=== PATIENT | male | born 1955 | race Caucasian/White ===

== ENCOUNTER 2018-04-28 11:34 | Emergency (ER) | payer BC ==
[~2018-04-28] VITALS: Ht 172.7 cm; Wt 111.4 kg
[~2018-04-28 11:34] MED LIST: ALTACE 5MG5 MG PO; ASPIRIN 32325 MG/TAB PO; BETAPACE 120MG120 MG PO; CARDURA4 MG PO; CLEOCIN HCL300 MG PO; DEPO-TESTOS200 MG/M1 IM; HCTZ 25MG TAB25 MG PO; KLONOPIN 1MG1 MG PO; LOPID 600M600 MG/TAB PO; LOZOL1.25 MG PO; NORCO 325 MG-51 TAB PO; PLAVIX 75MG TAB75 MG PO; PRILOSEC 20MG20 MG PO; TENORMIN 5050 MG/TAB PO
[2018-04-28 11:40] VITALS: TEMP 96.2
[2018-04-28 12:06] LABS: BASO % 0.5 % (0.0-2.0); EOS # 0.3 (0.0-0.7); EOS % 5.6 % (0-4.0); GRAN # 3.3 (1.4-6.5); GRAN % 54.2 % (42.2-75.2); HEMOGLOBIN 17.4 g/dl (13.5-18.0); LYMPH # 1.8 (1.2-3.4); LYMPH % 29.3 % (20.0-51.0); MEAN CELL VOLUME 86 fl (80.0-100.0); MEAN CORPUSCULAR HEMOGLOBIN 30 pg (27.0-31.0); MEAN CORPUSCULAR HGB CONC 34 g/dl (33.0-37.0); MEAN PLATELET VOLUME 10.6 fl (7.4-10.4); MONO # 0.6 (0.1-0.6); MONO % 9.7 % (1.7-9.3); PLATELET COUNT 191 K/mm3 (130-400); REDCELL DISTRIBUTION WIDTH-CV 15.2 % (11.5-14.5)
[2018-04-28 12:12] LABS: INR 1.2 (0.8-3.0); PROTHROMBIN TIME 13.5 SECONDS (9.7-12.8)
[2018-04-28 12:52] LABS: ALBUMIN 3.7 gm/dL (3.5-5.0); BILIRUBIN,TOTAL 0.7 mg/dL (0.0-1.0); CALCIUM 8.8 mg/dL (8.4-10.2); CREATININE, serum 0.91 mg/dL (0.66-1.25); POTASSIUM 4.7 mmol/L (3.4-5.0); TOTAL PROTEIN 7.3 gm/dL (6.4-8.2)
[2018-04-28] MEDS ORDERED: FLEXERIL 1010 MG/TAB PO (13:40)
[2018-04-28 13:50] VITALS: BP 128/86; PULSE 86
== END 2018-04-28 14:00 | disposition home or self-care (01) ==
LOC: COL.ER 11:34
PROVIDERS: Emergency Medicine
DX: S06.0X0A Concussion without loss of consciousness, initial encounter (principal); S01.01XA Laceration without foreign body of scalp, initial encounter; I48.91 Unspecified atrial fibrillation; W18.39XA Other fall on same level, initial encounter; W22.8XXA Striking against or struck by other objects, initial encounter; Y92.410 Unspecified street and highway as the place of occurrence of the external cause; Z79.01 Long term (current) use of anticoagulants; Z79.02 Long term (current) use of antithrombotics/antiplatelets; Z79.82 Long term (current) use of aspirin

== ENCOUNTER 2018-05-07 09:42 | Emergency (ER) | payer BC ==
[~2018-05-07 09:42] MED LIST changes: +FLEXERIL 1010 MG/TAB PO
[2018-05-07 09:47] VITALS: BP 128/83; PULSE 99
== END 2018-05-07 09:52 | disposition other institution (70) ==
LOC: COL.ER 09:42
DX: S01.01XD Laceration without foreign body of scalp, subsequent encounter (principal); X58.XXXD Exposure to other specified factors, subsequent encounter

== ENCOUNTER 2018-07-26 10:01 | Day surgery (SDC) | payer BC ==
[2018-07-26] VITALS (326 sets, daily range): BP systolic 132–155; BP diastolic 57–99; PULSE 72–96; TEMP 96.9–98.6; O2SAT 90–100
[~2018-07-26] VITALS: Ht 171.4 cm; Wt 105.8 kg
[2018-07-26] MEDS ORDERED: CIALIS20 MG PO (10:16)
[2018-07-26] MEDS ORDERED: ELIQUIS 5MG PO (10:17)
[2018-07-26] MEDS ORDERED: LOVENOX 100100 MG/ML SQ (10:18)
[2018-07-26] MEDS ORDERED: PROTONIX 40MG T40 MG PO (10:18)
[2018-07-26 10:57] LABS: HEMATOCRIT 48.5 % (42.0-52.0); HEMOGLOBIN 16.6 g/dl (13.5-18.0); MEAN CELL VOLUME 88 fl (80.0-100.0); MEAN CORPUSCULAR HEMOGLOBIN 30 pg (27.0-31.0); MEAN CORPUSCULAR HGB CONC 34 g/dl (33.0-37.0); MEAN PLATELET VOLUME 10.1 fl (7.4-10.4); PLATELET COUNT 183 K/mm3 (130-400); RED BLOOD COUNT 5.52 M/mm3 (4.20-5.60)
[2018-07-26 11:03] LABS: PROTHROMBIN TIME 11.9 SECONDS (9.7-12.8)
[2018-07-26 11:09] LABS: CALCIUM 8.8 mg/dL (8.4-10.2); CREATININE, serum 0.87 mg/dL (0.66-1.25); POTASSIUM 4.3 mmol/L (3.4-5.0)
[2018-07-27] VITALS (434 sets, daily range): BP systolic 120–141; BP diastolic 81–91; PULSE 69–75; TEMP 97–98; O2SAT 79–99
[2018-07-27 06:22] LABS: BASO % 0.5 % (0.0-2.0); EOS # 0.4 (0.0-0.7); EOS % 4.9 % (0-4.0); GRAN # 6.4 (1.4-6.5); GRAN % 74.3 % (42.2-75.2); HEMATOCRIT 49.8 % (42.0-52.0); HEMOGLOBIN 17.1 g/dl (13.5-18.0); LYMPH # 0.9 (1.2-3.4); LYMPH % 10.8 % (20.0-51.0); MEAN CELL VOLUME 87 fl (80.0-100.0); MEAN CORPUSCULAR HEMOGLOBIN 30 pg (27.0-31.0); MEAN CORPUSCULAR HGB CONC 34 g/dl (33.0-37.0); MONO # 0.8 (0.1-0.6); MONO % 8.9 % (1.7-9.3); PLATELET COUNT 189 K/mm3 (130-400); RED BLOOD COUNT 5.71 M/mm3 (4.20-5.60); REDCELL DISTRIBUTION WIDTH-CV 15.6 % (11.5-14.5)
[2018-07-27 06:36] LABS: CALCIUM 8.8 mg/dL (8.4-10.2); CREATININE, serum 0.84 mg/dL (0.66-1.25); POTASSIUM 4.1 mmol/L (3.4-5.0)
[2018-07-27] MEDS ORDERED: BRILINTA90 MG PO (09:39)
[2018-07-27] MEDS ORDERED: LIPITOR 80MG80 MG PO (09:39)
[2018-07-27] MEDS ORDERED: TOPROL XL 25MG25 MG PO (09:40)
[2018-07-27] MEDS ORDERED: ASPIRIN 81M81 MG/TA2 PO (09:40)
== END 2018-07-27 11:40 | disposition home or self-care (01) ==
LOC: COL.CAR 10:01 → ICU 14:38 → COL.CAR 07-27 11:40
PROVIDERS: Internal Medicine Cardiovascular Disease; Nurse Practitioner
DX: I25.10 Atherosclerotic heart disease of native coronary artery without angina pectoris (principal); I47.2 Ventricular tachycardia; E11.9 Type 2 diabetes mellitus without complications; E66.9 Obesity, unspecified; I10 Essential (primary) hypertension; G47.30 Sleep apnea, unspecified; Z88.0 Allergy status to penicillin; Z95.5 Presence of coronary angioplasty implant and graft; Z79.01 Long term (current) use of anticoagulants; Z86.73 Personal history of transient ischemic attack (TIA), and cerebral infarction without residual deficits
CPT/HCPCS: OP; C9600; C9601; J0153; J0583; J1644; J2250; J3010; Q9967

== ENCOUNTER 2018-08-03 12:41 | Emergency (ER) | payer BC ==
[~2018-08-03] VITALS: Ht 172.7 cm; Wt 103.2 kg
[~2018-08-03 12:41] MED LIST changes: +ASPIRIN 81M81 MG/TA2 PO; +BRILINTA90 MG PO; +CIALIS20 MG PO; +ELIQUIS 5MG PO; +LIPITOR 80MG80 MG PO; +LOVENOX 100100 MG/ML SQ; +PROTONIX 40MG T40 MG PO; +TOPROL XL 25MG25 MG PO
[2018-08-03 12:58] VITALS: TEMP 97.4
[2018-08-03 13:32] LABS: BASO % 0.4 % (0.0-2.0); EOS # 0.6 (0.0-0.7); EOS % 9.1 % (0-4.0); GRAN # 4.7 (1.4-6.5); GRAN % 66.4 % (42.2-75.2); HEMATOCRIT 48.6 % (42.0-52.0); HEMOGLOBIN 16.4 g/dl (13.5-18.0); LYMPH % 13.7 % (20.0-51.0); MEAN CELL VOLUME 88 fl (80.0-100.0); MEAN CORPUSCULAR HEMOGLOBIN 30 pg (27.0-31.0); MEAN CORPUSCULAR HGB CONC 34 g/dl (33.0-37.0); MEAN PLATELET VOLUME 10.2 fl (7.4-10.4); MONO # 0.7 (0.1-0.6); PLATELET COUNT 211 K/mm3 (130-400); RED BLOOD COUNT 5.53 M/mm3 (4.20-5.60); REDCELL DISTRIBUTION WIDTH-CV 14.6 % (11.5-14.5)
[2018-08-03 13:37] LABS: ALANINE AMINOTRANSFERASE 35 U/L (21-72); ALKALINE PHOSPHATASE 70 U/L (50-136); ANION GAP 11 mmol/L (7-16); AST,SGOT 27 U/L (15-37); BILIRUBIN,TOTAL 0.9 mg/dL (0.0-1.0); BLOOD UREA NITROGEN 19 mg/dL (9-20); CALCIUM 8.9 mg/dL (8.4-10.2); CARBON DIOXIDE 26 mmol/L (22-30); CHLORIDE 101 mmol/L (98-107); CREATININE, serum 0.93 mg/dL (0.66-1.25); GLUCOSE 93 mg/dL (74-106); INR 1.6 (0.8-3.0); PARTIAL THROMBOPLASTIN TIME 39.6 SECONDS (26.0-37.0); POTASSIUM 4.4 mmol/L (3.4-5.0); PROTHROMBIN TIME 18.1 SECONDS (9.7-12.8); SODIUM 138 mmol/L (137-145); TOTAL PROTEIN 7.6 gm/dL (6.4-8.2)
[2018-08-03 14:02] LABS: TROPONIN-I < 0.012 ng/mL (0.000-0.034)
[2018-08-03 14:50] VITALS: BP 151/91; PULSE 75
== END 2018-08-03 14:54 | disposition home or self-care (01) ==
LOC: COL.ER 12:41
PROVIDERS: Family Medicine
DX: R55 Syncope and collapse (principal); Z79.82 Long term (current) use of aspirin

== ENCOUNTER 2018-10-01 15:57 | Outpatient (RCR) | payer BC | END 2018-10-03 05:53 | disposition home or self-care (01) | LOC: COL.CR 15:57 | DX: Z48.812 Encounter for surgical aftercare following surgery on the circulatory system (principal); Z95.5 Presence of coronary angioplasty implant and graft; I25.10 Atherosclerotic heart disease of native coronary artery without angina pectoris ==

== ENCOUNTER 2018-12-31 14:58 | Outpatient (RCR) | payer SELFPAY | END 2019-01-01 | disposition home or self-care (01) | LOC: COL.CR | DX: Z02.89 Encounter for other administrative examinations (principal) ==

== ENCOUNTER 2019-04-01 14:53 | Outpatient (RCR) | payer SELFPAY | END 2019-04-02 | disposition home or self-care (01) | LOC: COL.CR | DX: Z02.89 Encounter for other administrative examinations (principal) ==

== ENCOUNTER → 2019-06-25 | Outpatient (CLI) | payer BC | LOC: COL.CARD 12:57 | DX: R42 Dizziness and giddiness (principal) ==

== ENCOUNTER 2019-06-28 14:39 | Outpatient (RCR) | payer SELFPAY | END 2019-07-04 | disposition home or self-care (01) | LOC: COL.CR | DX: Z02.89 Encounter for other administrative examinations (principal) ==

== ENCOUNTER 2019-07-17 14:56 | Outpatient (RCR) | payer SELFPAY | END 2019-10-03 | disposition home or self-care (01) | LOC: COL.CR | DX: Z02.89 Encounter for other administrative examinations (principal) ==

== ENCOUNTER 2019-11-07 08:45 | Emergency (ER) | payer BC ==
[~2019-11-07] VITALS: Ht 170.2 cm; Wt 97.7 kg
[2019-11-07 09:05] LABS: BASO # 0.1 (0.0-0.2); BASO % 0.6 % (0.0-2.0); EOS # 0.2 (0.0-0.7); EOS % 2.6 % (0-4.0); GRAN # 5.5 (1.4-6.5); HEMOGLOBIN 13.6 g/dl (13.5-18.0); LYMPH # 1.2 (1.2-3.4); LYMPH % 14.5 % (20.0-51.0); MEAN CELL VOLUME 85 fl (80.0-100.0); MEAN CORPUSCULAR HEMOGLOBIN 28 pg (27.0-31.0); MEAN CORPUSCULAR HGB CONC 33 g/dl (33.0-37.0); MEAN PLATELET VOLUME 9.9 fl (7.4-10.4); MONO # 1.1 (0.1-0.6); MONO % 13.8 % (1.7-9.3); PLATELET COUNT 227 K/mm3 (130-400); RED BLOOD COUNT 4.85 M/mm3 (4.20-5.60); REDCELL DISTRIBUTION WIDTH-CV 16.1 % (11.5-14.5)
[2019-11-07 09:08] LABS: INR 1.7 (0.8-3.0); PROTHROMBIN TIME 19.7 SECONDS (9.7-12.8)
[2019-11-07 09:10] LABS: PARTIAL THROMBOPLASTIN TIME 31.7 SECONDS (26.0-37.0)
[2019-11-07 09:17] LABS: ALANINE AMINOTRANSFERASE 38 U/L (21-72); ALBUMIN 3.9 gm/dL (3.5-5.0); ALKALINE PHOSPHATASE 74 U/L (50-136); ANION GAP 8 mmol/L (7-16); AST,SGOT 41 U/L (15-37); BILIRUBIN,TOTAL 1.8 mg/dL (0.0-1.0); BLOOD UREA NITROGEN 22 mg/dL (9-20); CALCIUM 8.7 mg/dL (8.4-10.2); CARBON DIOXIDE 26 mmol/L (22-30); CHLORIDE 103 mmol/L (98-107); GLUCOSE 91 mg/dL (74-106); LIPASE 41 U/L (23-300); SODIUM 137 mmol/L (137-145); TOTAL PROTEIN 7.3 gm/dL (6.4-8.2)
[2019-11-07 09:36] LABS: TROPONIN-I < 0.012 ng/mL (0.000-0.035)
[2019-11-07] MEDS ORDERED: ZOFRAN ODT4 MG PO (14:31)
[2019-11-07 14:45] VITALS: BP 137/71; PULSE 63; TEMP 98
== END 2019-11-07 14:45 | disposition home or self-care (01) ==
LOC: COL.ER 08:45
PROVIDERS: Emergency Medicine
DX: R10.13 Epigastric pain (principal); Z79.82 Long term (current) use of aspirin
CPT/HCPCS: C9113; J2405; J7030

== ENCOUNTER 2020-07-17 08:51 | Day surgery (SDC) | payer BC ==
[~2020-07-17] VITALS: Ht 170.2 cm; Wt 94.3 kg
[2020-07-17] VITALS (7 sets, daily range): BP systolic 136–148; BP diastolic 80–97; PULSE 71–77; TEMP 98.2
[~2020-07-17 08:51] MED LIST changes: +ZOFRAN ODT4 MG PO
[2020-07-17] MEDS ORDERED: AMOXICILLIN 50500 MG PO (09:32)
[2020-07-17] MEDS ORDERED: PRILOSEC 20MG20 MG PO (09:34)
[2020-07-17] MEDS ORDERED: BETAPACE 120MG120 MG PO (09:36)
--- NOTE | 2020-07-17 11:02 | NUR ---
SEE MERGE DOCUMENTATION FOR MEDICATION ADMINISTRATION AND INTRA/POST PROCEDURE SEDATION ASSESSMENTWS.
[2020-07-17] MEDS ORDERED: BETAPACE 80MG80 MG PO (11:16)
[2020-07-17] MEDS ORDERED: ASPIRIN 81M81 MG/TA2 PO (11:16)
--- NOTE | 2020-07-17 13:00 | NUR ---
Pt assisted out by wheelchair after review of DC instructions. Pt expressed understanding and denied questions. IV was DC'd with catheter intact, and bleeding controlled.
== END 2020-07-17 13:00 | disposition home or self-care (01) ==
LOC: COL.CAR 08:51
DX: Z45.09 Encounter for adjustment and management of other cardiac device (principal); I48.0 Paroxysmal atrial fibrillation; I10 Essential (primary) hypertension; E78.5 Hyperlipidemia, unspecified; I25.10 Atherosclerotic heart disease of native coronary artery without angina pectoris; K21.9 Gastro-esophageal reflux disease without esophagitis; N40.0 Benign prostatic hyperplasia without lower urinary tract symptoms; G47.33 Obstructive sleep apnea (adult) (pediatric); E66.9 Obesity, unspecified; G25.81 Restless legs syndrome; Z86.73 Personal history of transient ischemic attack (TIA), and cerebral infarction without residual deficits; Z20.828 Contact with and (suspected) exposure to other viral communicable diseases; Z95.5 Presence of coronary angioplasty implant and graft; Z85.820 Personal history of malignant melanoma of skin; Z90.49 Acquired absence of other specified parts of digestive tract; Z88.0 Allergy status to penicillin; Z79.01 Long term (current) use of anticoagulants; Z79.02 Long term (current) use of antithrombotics/antiplatelets; Z68.32 Body mass index [BMI] 32.0-32.9, adult; Z79.899 Other long term (current) drug therapy
CPT/HCPCS: C1764; J0690; J2250; J3010

== ENCOUNTER 2021-08-22 22:54 | Observation (INO) | payer BC ==
[~2021-08-22] VITALS: Ht 170.2 cm; Wt 102.1 kg
[~2021-08-22 22:54] MED LIST changes: +AMOXICILLIN 50500 MG PO; +BETAPACE 80MG80 MG PO
[2021-08-22 23:21] LABS: BASO # 0.1 (0.0-0.2); BASO % 0.6 % (0.0-2.0); EOS # 0.3 (0.0-0.7); EOS % 3.9 % (0-4.0); GRAN # 4.8 (1.4-6.5); GRAN % 62.4 % (42.2-75.2); HEMATOCRIT 47.7 % (42.0-52.0); HEMOGLOBIN 16.3 g/dl (13.5-18.0); LYMPH # 1.7 (1.2-3.4); LYMPH % 22.2 % (20.0-51.0); MEAN CELL VOLUME 86 fl (80.0-100.0); MEAN CORPUSCULAR HEMOGLOBIN 30 pg (27.0-31.0); MEAN CORPUSCULAR HGB CONC 34 g/dl (33.0-37.0); MEAN PLATELET VOLUME 10.4 fl (7.4-10.4); MONO # 0.8 (0.1-0.6); MONO % 10.6 % (1.7-9.3); PLATELET COUNT 237 K/mm3 (130-400); RED BLOOD COUNT 5.53 M/mm3 (4.20-5.60); REDCELL DISTRIBUTION WIDTH-CV 15.7 % (11.5-14.5)
[2021-08-22 23:40] LABS: ALANINE AMINOTRANSFERASE 21 U/L (0-55); ALBUMIN 3.6 gm/dL (3.4-4.8); ALKALINE PHOSPHATASE 85 U/L (0-750); ANION GAP 9 mmol/L; AST,SGOT 19 U/L (5-34); BILIRUBIN,TOTAL 0.9 mg/dL (0.2-1.2); BLOOD UREA NITROGEN 25 mg/dL (8-26); CALCIUM 9.4 mg/dL (8.4-10.2); CARBON DIOXIDE 21 mEq/L (23-31); CHLORIDE 107 mmol/L (98-107); CREATININE, serum 1.03 mg/dL (0.72-1.25); GLUCOSE 97 mg/dL (70-99); LIPASE 28 U/L (8-78); SODIUM 137 mmol/L (136-145); TOTAL PROTEIN 7.3 gm/dL (6.2-8.1)
[2021-08-22 23:53] LABS: TROPONIN-I < 0.010 ng/mL (0.00-0.033)
[2021-08-23] VITALS (9 sets, daily range): BP systolic 139–160; BP diastolic 69–82; PULSE 71–95; TEMP 97.8–98.1
--- NOTE | 2021-08-23 00:20 | NUR ---
Arrived to room 318 from ED via wheelchair. Oriented to room and policy. Admission assessment complete. A&Ox3. Denies pain/nausea/shortness of breath. VS stable. Tele applied. New orders initiated. Med rec completed. Plan of care discussed for this shift to include meds/monitoring on tele/reporting any pain or discomfort. Verbalizes understanding. Call light in reach. Will monitor.
[2021-08-23] MEDS ORDERED: DESYREL 50MG50 MG PO (02:07)
[2021-08-23] MEDS ORDERED: ALTACE 10MG TAB10 MG PO (03:03)
[2021-08-23] MEDS ORDERED: ASPIRIN 81M81 MG/TA2 PO (03:06)
--- NOTE | 2021-08-23 03:41 | NUR ---
Lab notified of 0200 lab draw for troponin. States lab is on way.
[2021-08-23 04:19] LABS: INR 1.5 (0.8-3.0); PROTHROMBIN TIME 16.5 SECONDS (9.7-12.8)
[2021-08-23 04:21] LABS: PARTIAL THROMBOPLASTIN TIME 29.7 SECONDS (26.0-37.0)
--- NOTE | 2021-08-23 06:31 | NUR ---
Patient had an uneventful night. Denied chest pain/nausea/shortness of breath. VS remained stable. Has been NPO due to cardiac workup. NS@30ml/hr to left AC 20g. Bedside glucose WNL. Denies questions/concerns. Call light in reach. Will monitor.
[2021-08-23 06:44] LABS: BASO % 0.6 % (0.0-2.0); EOS # 0.4 (0.0-0.7); EOS % 5.3 % (0-4.0); GRAN # 3.7 (1.4-6.5); GRAN % 55.7 % (42.2-75.2); HEMATOCRIT 48.4 % (42.0-52.0); HEMOGLOBIN 15.6 g/dl (13.5-18.0); LYMPH # 1.7 (1.2-3.4); LYMPH % 25.2 % (20.0-51.0); MEAN CELL VOLUME 90 fl (80.0-100.0); MEAN CORPUSCULAR HEMOGLOBIN 29 pg (27.0-31.0); MEAN CORPUSCULAR HGB CONC 32 g/dl (33.0-37.0); MEAN PLATELET VOLUME 10.8 fl (7.4-10.4); MONO # 0.8 (0.1-0.6); MONO % 12.7 % (1.7-9.3); PLATELET COUNT 210 K/mm3 (130-400); RED BLOOD COUNT 5.39 M/mm3 (4.20-5.60); REDCELL DISTRIBUTION WIDTH-CV 15.9 % (11.5-14.5)
[2021-08-23 07:33] LABS: CHOLESTEROL RISK RATIO 3.8
--- NOTE | 2021-08-23 11:09 | NUR ---
PT PLEASANT, AOX4, REPORTS ABD PAIN IN R FLANK, TYLENOL GIVEN, PT LOOP RECORDER DOWNLOADED, ASSESSMENT PERFORMED, MEDICATIONS GIVEN, VITALS REVIEWED, NO OTHER NEEDS AT THIS TIME.
--- NOTE | 2021-08-23 14:30 | NUR ---
PT TAKEN DOWN FOR LEXISCAN
--- NOTE | 2021-08-23 15:23 | NUR ---
PT ARRIVED FROM [facility] AND REATTACHED TO [facility]
--- NOTE | 2021-08-23 15:57 | NUR ---
JACKSON met with patient at bedside, Fifi was present. Fifi's contact #[phone]. Patient is fully independent, no DME's or home 02. 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 Patient and live 15[place]20 mi outside of [place]. PCP is Dr. Salas. *D/C home with
--- NOTE | 2021-08-23 17:34 | NUR ---
PT PLEASANT, AOX4, DENIES PAIN, EAGER FOR DISCHARGE, DISCHARGE PAPER WORK PRINTED, DISHCARGE PAPERWORK PROVIDED, IV REMOVED, NO OTHER NEEDW
--- NOTE | 2021-08-23 18:05 | NUR ---
PT ESCORTED OUT AFTER DISCHARGE EDUCATION PROVIDED, TELE REMOVED AND IV REMOVED, NO OTHER NEEDS AT THIS TIME
== END 2021-08-23 18:06 | disposition home or self-care (01) ==
LOC: COL.ER 22:54 → MEDICAL 08-23 00:25
PROVIDERS: Emergency Medicine; Nurse Practitioner Family; ADMIT Internal Medicine
DX: I25.110 Atherosclerotic heart disease of native coronary artery with unstable angina pectoris (principal); I10 Essential (primary) hypertension; I48.0 Paroxysmal atrial fibrillation; E78.5 Hyperlipidemia, unspecified; R10.9 Unspecified abdominal pain; G47.33 Obstructive sleep apnea (adult) (pediatric); G47.00 Insomnia, unspecified; Z79.01 Long term (current) use of anticoagulants; Z79.899 Other long term (current) drug therapy; Z95.818 Presence of other cardiac implants and grafts; Z79.82 Long term (current) use of aspirin; Z86.73 Personal history of transient ischemic attack (TIA), and cerebral infarction without residual deficits; Z86.718 Personal history of other venous thrombosis and embolism; Z85.828 Personal history of other malignant neoplasm of skin; Z95.5 Presence of coronary angioplasty implant and graft
CPT/HCPCS: A9500; G0378; J2785; J7030; Q9967